=== PATIENT | male | born 1950 | race Caucasian/White ===

== ENCOUNTER 2018-09-19 09:55 | Emergency (ER) | payer BC ==
[~2018-09-19] VITALS: Ht 175.2 cm; Wt 70.3 kg
== END 2018-09-19 10:30 | disposition home or self-care (01) ==
LOC: ED 09:55
DX: T15.01XA Foreign body in cornea, right eye, initial encounter (principal); X58.XXXA Exposure to other specified factors, initial encounter; Y93.89 Activity, other specified; Y92.89 Other specified places as the place of occurrence of the external cause; Y99.8 Other external cause status

== ENCOUNTER → 2021-04-03 | Outpatient (CLI) | payer OTHER | END | disposition home or self-care (01) | LOC: NM 10:00 | PROVIDERS: ATTEND Family Medicine | DX: M89.9 Disorder of bone, unspecified (principal) ==

== ENCOUNTER → 2021-05-02 | Outpatient (CLI) | payer OTHER ==
[~2021-05-02] MED LIST: ASPIRIN81 M1 PO; LISINOPRIL20 MG PO
== END | disposition home or self-care (01) ==
LOC: CARD 00:03
PROVIDERS: ATTEND Internal Medicine Cardiovascular Disease
DX: R94.31 Abnormal electrocardiogram [ECG] [EKG] (principal); Z82.49 Family history of ischemic heart disease and other diseases of the circulatory system

== ENCOUNTER → 2023-11-20 | Outpatient (CLI) | payer OTHER ==
[~2023-11-20] MED LIST changes: +'CLONIDINE0.1 MG PO
== END | disposition home or self-care (01) ==
LOC: LAB 11:34
PROVIDERS: ATTEND Family Medicine
DX: Z12.5 Encounter for screening for malignant neoplasm of prostate (principal); N18.30 Chronic kidney disease, stage 3 unspecified